=== PATIENT | female | born 1965 | race Asian ===

== ENCOUNTER 2021-02-01 07:37 | Emergency (ER) | payer MEDICAID ==
[~2021-02-01] VITALS: Ht 154.9 cm; Wt 52.6 kg
[2021-02-01 07:46] VITALS: Ht 154.9 cm; Wt 52.6 kg
[2021-02-01 08:37] LABS: BASOPHIL % 0.4 % (0.2-1.3); PLATELET COUNT 209 x10^3mcL (179-408)
[2021-02-01 09:09] LABS: CALCIUM 10.5 mg/dL (8.5-10.1); CARBON DIOXIDE 30.5 mmol/L (21-32); CHLORIDE SERUM 101 mmol/L (98-107); CREATININE SERUM 0.7 mg/dL (0.6-1.0); GFR1 > 60 mL/min; GLUCOSE SERUM 109 mg/dL (74-106); POTASSIUM SERUM 4.4 mmol/L (3.5-5.1); SODIUM SERUM 137 mmol/L (136-145)
[2021-02-01 09:14] LABS: ALBUMIN 3.7 g/dL (3.4-5.0); ALKALINE PHOSPHATASE 68 U/L (46-116); ALT/SGPT 19 U/L (14-59); AST/SGOT 34 U/L (15-37); BILIRUBIN TOTAL 0.5 mg/dL (0.20-1.00); C REACTIVE PROTEIN 0.5 mg/dL (<=0.9)
[2021-02-01 10:07] LABS: ERYTHROCYTE SED RATE 89 mm/hr (0-30)
[2021-02-01 10:27] LABS: FREE T4 1.05 ng/dL (0.76-1.46)
[2021-02-01 12:30] VITALS: BP 124/82
== END 2021-02-01 12:30 | disposition home or self-care (01) ==
LOC: ED 07:37
PROVIDERS: Student in an Organized Health Care Education/Training Program
DX: R22.1 Localized swelling, mass and lump, neck (principal); E78.00 Pure hypercholesterolemia, unspecified
CPT/HCPCS: 84439; Q9967